=== PATIENT | female | born 1955 | race Two or more races ===

== ENCOUNTER → 2025-06-05 | Outpatient (REF) | payer MEDICARE | LOC: M LAB REF 14:38 | DX: Z79.899 Other long term (current) drug therapy (principal) ==

== ENCOUNTER → 2025-06-18 | Outpatient (CLI) | payer MEDICARE | LOC: M PLAIMG 11:34 | DX: R91.1 Solitary pulmonary nodule (principal); R91.8 Other nonspecific abnormal finding of lung field ==

== ENCOUNTER → 2025-07-02 | Outpatient (REF) | payer MEDICARE ==
[2025-07-02 14:23] LABS: APPEARANCE, URINE HAZY (CLEAR); BACTERIA, URINE AUTO NEGATIVE (NEGATIVE); BILIRUBIN, URINE AUTO NEGATIVE (NEGATIVE); BLOOD, URINE BLOOD NEGATIVE (NEGATIVE); CALCIUM OXALATE CRYSTALS LARGE; GLUCOSE, URINE (UA) AUTO NEGATIVE (NEGATIVE); KETONE, URINE AUTO TRACE mg/dL (NEGATIVE); LEUKOCYTE ESTERASE, URINE AUTO 2+ (NEGATIVE); MUCUS, URINE SMALL (NEGATIVE); NITRITE, URINE AUTO NEGATIVE (NEGATIVE); PROTEIN, URINE AUTO NEGATIVE (NEGATIVE); RBC, URINE AUTO 0 /HPF (0-3); SPECIFIC GRAVITY URINE AUTO 1.027 (1.002-1.035); SQUAMOUS EPITHELIAL CELL UR AU 6 /HPF (0-6); UROBILINOGEN, URINE AUTO 2.0 mg/dL (0.0-2.0); WBC, URINE AUTO 11 /HPF (0-3)
== END ==
LOC: M SFHCWAGY 13:20
PROVIDERS: ATTEND Nurse Practitioner Family
DX: R39.15 Urgency of urination (principal); N89.8 Other specified noninflammatory disorders of vagina
CPT/HCPCS: 81001; 87070; 87086; G0463

== ENCOUNTER → 2025-07-04 | Outpatient (REF) | payer MEDICARE ==
[2025-07-04 14:27] LABS: VITAMIN B12 LEVEL 695 PG/ML (211-911)
[2025-07-06 09:43] LABS: PROTEIN, TOTAL SO 6.9 g/dL (6.1-8.1)
[2025-07-08 18:33] LABS: VITAMIN E(ALPHA TOCOPHEROL) 18.1 mg/L (5.7-19.9); VITAMIN E(GAMMA TOCOPHEROL) < 1.0 mg/L (<=4.3)
== END ==
LOC: M LAB REF 13:44
DX: G62.9 Polyneuropathy, unspecified (principal); E53.8 Deficiency of other specified B group vitamins